=== PATIENT | male | born 1960 | race Caucasian/White ===

== ENCOUNTER 2016-05-16 22:52 | Observation (INO) | payer MEDICAID ==
[~2016-05-16] VITALS: Ht 172.7 cm; Wt 78.0 kg
[2016-05-16 22:55] VITALS: BP 151/79; PULSE 103; RESP 18; TEMP 97.9; O2SAT 95
[2016-05-16] MEDS ORDERED: LISI-515 PO (23:12)
[2016-05-16] MEDS ORDERED: ATEN50TA PO (23:12)
[2016-05-16] MEDS ORDERED: MORPHINE SULFATE 4 MG/ML INJ IV PUSH ONE (23:15)
[2016-05-16] MEDS ORDERED: SODIUM CHLORIDE 0.9% FLUSH 5 ML FLUSH IVF PRN (23:15)
[2016-05-16] MEDS ORDERED: SODIUM CHLORID 0.9% 500 ML INJ 500 ML IV ONE (23:15)
[2016-05-16] MEDS: METOPROLOL TARTRATE 5 MG/5 ML VIAL IVS SCH ×3 (23:20→23:27)
[2016-05-16 23:21] VITALS: BP 149/72; PULSE 90; RESP 18; O2SAT 96
--- NOTE | 2016-05-16 23:22 | PD ---
HPI Chief Complaint: Chest Pain Time Seen by Provider: 23:05 Travel History International Travel<30 days: No Contact w/Intl Traveler<30days: No Traveled to known affect area: No History of Present Illness HPI A 56-year-old male arrives to the ER by EMS. He complains of left-sided chest pain with radiation to the shoulder and elbow. It started about one hour prior to ER arrival. He received 1 nitroglycerin en route by EMS. He states that did not help. He reports a history of myocardial infarction however denies placement of a stent. He takes neither aspirin or Plavix. Today he drank X cans of beer and [place] the day on the beach. The chest pain started when he began walking to a [employer] for food. He states the severity is 8/10. He states he has a known left bundle-branch block. He is on vacation here from [place]. PFSH Past Medical History Hypertension: Yes Myocardial Infarction: Yes (Pt states he thinks in 2009) Social History Alcohol Use: Yes (12-15 beers per day) Tobacco Use: Yes (1ppd ) Substance Use: No Allergies-Medications (Allergen,Severity, Reaction): Coded Allergies: Codeine (Verified Adverse Reaction, Intermediate, Nausea/Vomiting, 05/16/16) Reported Meds & Prescriptions Reported Meds & Active Scripts Active Reported Atenolol 50 Mg Tab Unknown Dose PO BID Lisinopril 20 Mg Tab Unknown Dose PO DAILY Review of Systems Except as stated in HPI: all other systems reviewed are Neg Physical Exam Narrative GENERAL: 56-year-old male, falls asleep during the ER evaluation SKIN: Warm and dry. HEAD: Atraumatic. Normocephalic. EYES: Pupils equal and round. No scleral icterus. No injection or drainage. ENT: No nasal bleeding or discharge. Mucous membranes pink and moist. NECK: Trachea midline. No JVD. CARDIOVASCULAR: Regular rate and rhythm. No murmur appreciated. RESPIRATORY: No accessory muscle use. Clear to auscultation. Breath sounds equal bilaterally. GASTROINTESTINAL: Abdomen soft, non-tender, nondistended. Hepatic and splenic margins not palpable. MUSCULOSKELETAL: No obvious deformities. No clubbing. No cyanosis. No edema. NEUROLOGICAL: Awake and alert. No obvious cranial nerve deficits. Motor grossly within normal limits. Normal speech. PSYCHIATRIC: Appropriate mood and affect; insight and judgment normal. Data Data Last Documented VS Vital Signs Date Time Temp Pulse Resp B/P Pulse Ox O2 Delivery O2 Flow Rate FiO2 05/17/16 00:05 88 17 158/89 96 Nasal Cannula 2 05/16/16 22:55 97.9 Orders Electrocardiogram (05/16/16 23:06) Ckmb (Isoenzyme) Profile (05/16/16 23:06) Complete Blood Count With Diff (05/16/16 23:06) Comprehensive Metabolic Panel (05/16/16 23:06) Magnesium (Mg) (05/16/16 23:06) Prothrombin Time / Inr (Pt) (05/16/16 23:06) Act Partial Throm Time (Ptt) (05/16/16 23:06) Troponin I (05/16/16 23:06) Lipase (05/16/16 23:06) Chest, Single Ap (05/16/16 23:06) Ecg Monitoring (05/16/16 23:06) Bilateral Bp Monitoring (05/16/16 23:06) Iv Access Insert/Monitor (05/16/16 23:06) Oximetry (05/16/16 23:06) Oxygen Administration (05/16/16 23:06) Morphine Inj (Morphine Inj) (05/16/16 23:15) Sodium Chloride 0.9% Flush (Ns Flush) (05/16/16 23:15) Sodium Chlorid 0.9% 500 Ml Inj (Ns 500 M (05/16/16 23:15) Metoprolol Tartrate Inj (Lopressor Inj) (05/16/16 23:15) CKMB (05/16/16 23:14) CKMB% (05/16/16 23:14) Nitroglycerin 2% Oint (Nitroglycerin 2% (05/17/16 00:30) Labs Laboratory Tests Test 05/16/16 23:14 White Blood Count 6.7 TH/MM3 Red Blood Count 4.50 MIL/MM3 Hemoglobin 14.4 GM/DL Hematocrit 40.4 % Mean Corpuscular Volume 89.8 FL Mean Corpuscular Hemoglobin 32.1 PG Mean Corpuscular Hemoglobin 35.7 % Concent Red Cell Distribution Width 15.4 % Platelet Count 203 TH/MM3 Mean Platelet Volume 8.8 FL Neutrophils (%) (Auto) 47.7 % Lymphocytes (%) (Auto) 42.3 % Monocytes (%) (Auto) 8.0 % Eosinophils (%) (Auto) 0.8 % Basophils (%) (Auto) 1.2 % Neutrophils # (Auto) 3.2 TH/MM3 Lymphocytes # (Auto) 2.8 TH/MM3 Monocytes # (Auto) 0.5 TH/MM3 Eosinophils # (Auto) 0.1 TH/MM3 Basophils # (Auto) 0.1 TH/MM3 CBC Comment DIFF FINAL Differential Comment Prothrombin Time 10.0 SEC Prothromb Time International 0.9 RATIO Ratio Activated Partial 29.3 SEC Thromboplast Time Sodium Level 142 MEQ/L Potassium Level 3.5 MEQ/L Chloride Level 105 MEQ/L Carbon Dioxide Level 24.3 MEQ/L Anion Gap 13 MEQ/L Blood Urea Nitrogen 7 MG/DL Creatinine 0.97 MG/DL Estimat Glomerular Filtration 79 ML/MIN Rate Random Glucose 117 MG/DL Calcium Level 7.8 MG/DL Magnesium Level 2.5 MG/DL Total Bilirubin 0.6 MG/DL Aspartate Amino Transf 48 U/L (AST/SGOT) Alanine Aminotransferase 31 U/L (ALT/SGPT) Alkaline Phosphatase 62 U/L Total Creatine Kinase 786 U/L Creatine Kinase MB 6.2 NG/ML Creatine Kinase MB % 0.8 % Troponin I 0.05 NG/ML Total Protein 7.0 GM/DL Albumin 3.7 GM/DL Lipase 690 U/L [facility] Medical Decision Making Medical Screen Exam Complete: Yes Emergency Medical Condition: Yes Differential Diagnosis NSTEMI, unstable angina, coronary vasospasm, PE, PTX, aortic dissection, pericarditis, myocarditis, endocarditis, PNA, esophageal disease, aneurysm, musculoskeletal etiologies, anxiety, cocaine/sympathomimetic abuse Narrative Course CBC & BMP Diagram 05/16/16 23:14 Total creatinine kinase 796 Lipase 690 EKG reveals a left bundle branch block pattern with a rate of 92 INR 0.9 Last Impressions Chest X-Ray 05/16/16 7206 Signed Impressions: Service Date/Time: Monday, May 16, 2016 23:49 - CONCLUSION: No acute disease. Daniel Martinez MD The patient has remained sleeping throughout most of his ER stay. He has received IV fluids metoprolol and Nitropaste. He took aspirin this morning. He 'll be admitted for serial enzymes and for a mild pancreatitis. Discussed with Dr Gonzalez. Etiology of pancreatitis is unclear however there is no hyperbilirubinemia or sign of infection. Patient also drank alcohol all day today such that alcoholic pancreatitis is considered high on the differential. Diagnosis Primary Impression: Pancreatitis Qualified Code: K85.90 - Acute pancreatitis, unspecified complication status, unspecified pancreatitis type Additional Impressions: Alcohol abuse Troponin level elevated Admitting Information Admitting Physician Requests: Observation Laim Melton MD May 16, 2016 23:22
[2016-05-16 23:26] LABS: AUTOMATED NEUTROPHIL # 3.2 TH/MM3 (1.8-7.7); BASOPHIL # 0.1 TH/MM3 (0-0.2); BASOPHIL % 1.2 % (0.0-2.0); EOSINOPHIL # 0.1 TH/MM3 (0-0.4); EOSINOPHIL % 0.8 % (0.0-4.0); HEMATOCRIT 40.4 % (39.0-51.0); HEMO FLAGS DIFF FINAL; LYMPH % 42.3 % (9.0-44.0); LYMPHOCYTE # 2.8 TH/MM3 (1.0-4.8); MEAN CELL VOLUME 89.8 FL (80.0-100.0); MEAN CORPUSCULAR HEMOGLOBIN 32.1 PG (27.0-34.0); MEAN CORPUSCULAR HGB CONC 35.7 % (32.0-36.0); NEUT % 47.7 % (16.0-70.0); PLATELET COUNT 203 TH/MM3 (150-450); RED CELL DISTRIBUTION WIDTH 15.4 % (11.6-17.2); WHITE BLOOD COUNT 6.7 TH/MM3 (4.0-11.0)
[2016-05-16 23:27] VITALS: BP 120/74; PULSE 83; RESP 16; O2SAT 96
[2016-05-16 23:34] LABS: APTT (PATIENT) 29.3 SEC (24.3-30.1); INTERNATIONAL NORMALIZED RATIO 0.9 RATIO
[2016-05-16 23:41] LABS: ANION GAP 13 MEQ/L (5-15); AST (GOT) 48 U/L (15-37); BICARBONATE 24.3 MEQ/L (21.0-32.0); BLOOD UREA NITROGEN 7 MG/DL (7-18); CHLORIDE 105 MEQ/L (98-107); GLOMERULAR FILTRATION RATE 79 ML/MIN (>89); MAGNESIUM 2.5 MG/DL (1.5-2.5); POTASSIUM 3.5 MEQ/L (3.5-5.1); SODIUM (NA) 142 MEQ/L (136-145)
[2016-05-16 23:45] LABS: ALKALINE PHOSPHATASE 62 U/L (45-117); ALT (GPT) 31 U/L (12-78); CREATINE KINASE 786 U/L (39-308); TOTAL BILIRUBIN ADULT 0.6 MG/DL (0.2-1.0)
[2016-05-16 23:48] VITALS: BP 146/79; PULSE 82; RESP 17; O2SAT 96
[2016-05-16 23:57] LABS: CKMB 6.2 NG/ML (0.5-3.6)
[2016-05-17] VITALS (10 sets, daily range): BP systolic 135–180; BP diastolic 63–92; PULSE 68–95; RESP 17–18; TEMP 97.8–98.6; O2SAT 92–99
--- NOTE | 2016-05-17 00:17 | RADRPT ---
EXAM DATE/TIME: 05/16/2016 23:49 [facility] COMPARISON: No previous studies available for comparison. INDICATIONS : Chest pain for several days. MEDICAL HISTORY : Unobtainable. SURGICAL HISTORY : Unobtainable. ENCOUNTER: Initial ACUITY: 1 day PAIN SCORE: Non-responsive. LOCATION: Bilateral chest FINDINGS: A single view of the chest demonstrates the lungs to be symmetrically aerated without evidence of mas s, infiltrate or effusion. The cardiomediastinal contours are unremarkable. Osseous structures are intact. CONCLUSION: No acute disease. Daniel Martinez MD on May 17, 2016 at 0:15 Board Certified Radiologist. This report was verified electronically.
[2016-05-17] MEDS ORDERED: NITROGLYCERIN 2% OINT 1 GM PACKET TOP ONE (00:30)
[2016-05-17] MEDS ORDERED: SODIUM CHLOR 0.9% 1000 ML INJ 1,000 ML IV SCH (00:35)
[2016-05-17] MEDS ORDERED: BISACODYL 10 MG SUPP PR PRN (00:45)
[2016-05-17] MEDS ORDERED: ACETAMINOPHEN 325 MG TAB PO PRN (00:45)
[2016-05-17] MEDS ORDERED: MORPHINE SULFATE 4 MG/ML INJ IV PRN (00:45)
[2016-05-17] MEDS ORDERED: SODIUM CHLORIDE 0.9% FLUSH 5 ML FLUSH FLUSH PRN (00:45)
[2016-05-17] MEDS ORDERED: ONDANSETRON HCL 4 MG/2 ML VIAL IVP PRN (00:45)
--- NOTE | 2016-05-17 02:26 | HHI.HP ---
[facility] Primary Care Physician Non-Staff Admission Diagnosis Pancreatitis, Tn 0.05 w CP, EtOH Intox Diagnoses: (1) Chest pain Diagnosis: Principal (2) Pancreatitis Diagnosis: Principal (3) Rhabdomyolysis Diagnosis: Principal (4) Alcohol abuse Diagnosis: Principal (5) Tobacco abuse Diagnosis: Principal Travel History International Travel<30 Days: No Contact w/Intl Traveler <30 Da: No Traveled to Known Affected Are: No History of Present Illness This is a 56-year-old male with PMH of HTN, Alcohol Abuse and Tobacco Abuse who is brought to the ER by EMS secondary complaints of left-sided chest pain starting earlier tonight. S/p NTG by EMS w/ no improvement. Denies fever, chills, cough or SOB. Does admit to drinking approx 12 beers/day, reports drinking 10 beers today prior to onset of chest pain. On arrival, BP 151/79, HR 103, O2 sat 95% on RA, Afebrile. CBC unremarkable. Chemistry essentially unremarkable. CPK 786. Troponin 0.05. Lipase 690. CXR with no acute findings. Patient currently chest pain-free. Review of Systems Other ROS: 14 point review of systems otherwise negative. Past Family Social History Past Medical History PMH: HTN, Alcohol Abuse and Tobacco Abuse Past Surgical History PAST SURGICAL HISTORY: None Allergies: Coded Allergies: Codeine (Verified Adverse Reaction, Intermediate, Nausea/Vomiting, 05/16/16) Family History PAST FAMILY HISTORY: Reviewed. No h/o DM or CAD Social History PAST SOCIAL HISTORY: Drinks 12-15 beers per day. Smokes 1ppd. Negative for drugs. Physical Exam Vital Signs Vital Signs Date Time Temp Pulse Resp B/P Pulse Ox O2 Delivery O2 Flow Rate FiO2 05/17/16 00:05 88 17 158/89 96 Nasal Cannula 2 05/16/16 23:48 82 17 146/79 96 Nasal Cannula 2 05/16/16 23:27 83 16 120/74 96 Nasal Cannula 2 05/16/16 23:21 90 18 149/72 96 Nasal Cannula 2 05/16/16 23:09 96 Nasal Cannula 2 05/16/16 22:55 97.9 103 18 151/79 95 Physical Exam PE: GENERAL: Middle-aged white male in no acute distress. Acutely intoxicated. HEENT: PERRLA, EOMI. No scleral icterus or conjunctival pallor. No lid lag or facial droop. CARDIOVASCULAR: Regular rate and rhythm. No obvious murmurs to auscultation. No chest tenderness to palpation. RESPIRATORY: No obvious rhonchi or wheezing. Clear to auscultation. Breath sounds equal bilaterally. GASTROINTESTINAL: Abdomen soft, non-tender, nondistended. BS normal. MUSCULOSKELETAL: Extremities without clubbing, cyanosis, or edema. No obvious deformities. NEUROLOGICAL: Lethargic, intoxicated, rouses to name, answers few questions. No focal neurologic deficits. Moving both upper and lower extremities spontaneously. Laboratory Laboratory Tests Test 05/16/16 23:14 White Blood Count 6.7 Red Blood Count 4.50 Hemoglobin 14.4 Hematocrit 40.4 Mean Corpuscular Volume 89.8 Mean Corpuscular Hemoglobin 32.1 Mean Corpuscular Hemoglobin 35.7 Concent Red Cell Distribution Width 15.4 Platelet Count 203 Mean Platelet Volume 8.8 Neutrophils (%) (Auto) 47.7 Lymphocytes (%) (Auto) 42.3 Monocytes (%) (Auto) 8.0 Eosinophils (%) (Auto) 0.8 Basophils (%) (Auto) 1.2 Neutrophils # (Auto) 3.2 Lymphocytes # (Auto) 2.8 Monocytes # (Auto) 0.5 Eosinophils # (Auto) 0.1 Basophils # (Auto) 0.1 CBC Comment DIFF FINAL Differential Comment Prothrombin Time 10.0 Prothromb Time International 0.9 Ratio Activated Partial 29.3 Thromboplast Time Sodium Level 142 Potassium Level 3.5 Chloride Level 105 Carbon Dioxide Level 24.3 Anion Gap 13 Blood Urea Nitrogen 7 Creatinine 0.97 Estimat Glomerular Filtration 79 Rate Random Glucose 117 Calcium Level 7.8 Magnesium Level 2.5 Total Bilirubin 0.6 Aspartate Amino Transf 48 (AST/SGOT) Alanine Aminotransferase 31 (ALT/SGPT) Alkaline Phosphatase 62 Total Creatine Kinase 786 Creatine Kinase MB 6.2 Creatine Kinase MB % 0.8 Troponin I 0.05 Total Protein 7.0 Albumin 3.7 Lipase 690 Result Diagram: 05/16/16 8491 05/16/160 Assessment and Plan Problem List: (1) Chest pain ICD Code: R07.9 Status: Acute (2) Pancreatitis ICD Code: K85.90 Status: Acute (3) Rhabdomyolysis ICD Code: M62.82 Status: Acute (4) Alcohol abuse ICD Code: F10.10 Status: Acute (5) Tobacco abuse ICD Code: Z72.0 Status: Acute Assessment and Plan A/P: 1. Chest Pain: Atypical. Chest pain likely related to Alcoholic Gastritis/ Pancreatitis, however will r/o ACS. Initial trop 0.05, EKG w/ no acute ischemia. Admit for Observation, telemetry, check serial cardiac enzymes. Start ASA, Statin and B-sohail. Check Lipid Profile. NTG/Morphine prn. 2. Pancreatitis: Alcohol-Induced. Lipase 690. Protonix IV, IVF, repeat Lipase in am. Diet as tolerated. Analgesics/antiemetics as needed. 3. Rhabdomyolysis: CPK 786, IVF, repeat labs in am. 4. Alcohol Abuse: w/ Acute Alcohol Intoxication. Drinks 12-15 beers/day, Seizure Precautions, CIWA, MVT/Thiamine/Folate replacement. 5. Tobacco Abuse: Ativan prn. No NicoDerm to avoid vasoconstriction. 6. DVT Prophylaxis: SCD/Teds. 7. Social work for d/c planning as needed. 8. Case discussed w/ ER physician at length. Problem Qualifiers (1) Pancreatitis: Qualified Code: K85.90 - Acute pancreatitis, unspecified complication status, unspecified pancreatitis type Daphne Gonzalez MD May 17, 2016 02:26
[2016-05-17] MEDS ORDERED: LORazepam 2 MG TAB PO PRN (02:30)
[2016-05-17] MEDS ORDERED: LORazepam 1 MG TAB PO PRN (02:30)
[2016-05-17] MEDS ORDERED: LORazepam 2 MG/ML VIAL IV PUSH PRN ×2 (02:30)
[2016-05-17] MEDS ORDERED: HALOPERIDOL LACTATE 5 MG/ML AMP IM PRN (02:30)
[2016-05-17] MEDS ORDERED: FLUMAZENIL 0.5 MG/5 ML VIAL IV PUSH PRN (02:30)
[2016-05-17] MEDS: LORazepam 2 MG/ML VIAL IV PUSH PRN ×3 (05:39→18:13)
[2016-05-17] MEDS: THIAMINE INJ 100 MG in SODIUM CHLORIDE 0.9% INJ 100 ML IV SCH (05:39)
[2016-05-17 06:07] LABS: AUTOMATED NEUTROPHIL # 2.7 TH/MM3 (1.8-7.7); BASOPHIL # 0.1 TH/MM3 (0-0.2); BASOPHIL % 1.1 % (0.0-2.0); EOSINOPHIL # 0.1 TH/MM3 (0-0.4); EOSINOPHIL % 1.5 % (0.0-4.0); HEMATOCRIT 40.3 % (39.0-51.0); HEMO FLAGS DIFF FINAL; LYMPH % 35.9 % (9.0-44.0); LYMPHOCYTE # 1.9 TH/MM3 (1.0-4.8); MEAN CELL VOLUME 89.9 FL (80.0-100.0); MEAN CORPUSCULAR HGB CONC 35.6 % (32.0-36.0); NEUT % 51.5 % (16.0-70.0); PLATELET COUNT 199 TH/MM3 (150-450); RED BLOOD COUNT 4.48 MIL/MM3 (4.50-5.90); RED CELL DISTRIBUTION WIDTH 15.4 % (11.6-17.2); WHITE BLOOD COUNT 5.3 TH/MM3 (4.0-11.0)
[2016-05-17 06:35] LABS: ALKALINE PHOSPHATASE 53 U/L (45-117); ALT (GPT) 29 U/L (12-78); ANION GAP 8 MEQ/L (5-15); AST (GOT) 49 U/L (15-37); BLOOD UREA NITROGEN 7 MG/DL (7-18); CHLORIDE 110 MEQ/L (98-107); CREATINE KINASE 635 U/L (39-308); GLOMERULAR FILTRATION RATE 91 ML/MIN (>89); LDL CHOLESTEROL 93 MG/DL (0-99); SODIUM (NA) 143 MEQ/L (136-145); TOTAL BILIRUBIN ADULT 0.8 MG/DL (0.2-1.0)
[2016-05-17 06:36] LABS: POTASSIUM 4.2 MEQ/L (3.5-5.1)
[2016-05-17] MEDS: MULTIVITAMIN INJ 10 ML, FOLIC ACID INJ 1 MG in SODIUM CHLORID 0.9% 500 ML INJ 500 ML IV SCH (06:39)
[2016-05-17 06:51] LABS: CKMB 4.9 NG/ML (0.5-3.6)
[2016-05-17] MEDS ORDERED: ASPIRIN EC 81 MG TABEC PO SCH (09:00)
[2016-05-17] MEDS: SODIUM CHLORIDE 0.9% FLUSH 5 ML FLUSH FLUSH SCH ×2 (09:00→21:17)
[2016-05-17 09:07] LABS: BLOOD, URINE NEG (NEG); COMMENT (UR) CULT NOT INDICATED; CULTURE IF INDICATED CULT NOT INDICATED; GLUCOSE,URINE NEG (NEG); HYALINE CAST, URINE 4 /lpf (RARE); KETONE, URINE 10 mg/dL (NEG); MUCUS URINE FEW /lpf (OCC); NITRITE,URINE NEG (NEG); PH, URINE 5.5 (5.0-8.5); SQUAMOUS EPITHELIAL CELL URINE <1 /hpf (0-5); URINE COLOR YELLOW (YELLW/STRAW)
[2016-05-17] MEDS ORDERED: REGADENOSON INJ 0.4 MG/5 ML SYR ONE (09:31)
--- NOTE | 2016-05-17 11:07 | RADRPT ---
EXAM DATE/TIME: 05/17/2016 09:10 [facility] COMPARISON: No previous studies available for comparison. INDICATIONS : Left sided chest pain for 1 day. Current smoker. Angina. Myocardial infarction. DOSE: 25.4 mCi Tc99m Myoview at stress. 8.2 mCi Tc99m Myoview at rest. 0.4 mg Lexiscan STRESS SYMPTOMS: Dyspnea. EJECTION FRACTION: 47% MEDICAL HISTORY : Hypertension. Alcohol abuse. SURGICAL HISTORY : None. ENCOUNTER: Initial ACUITY: 1 day PAIN SCALE: 3/10 LOCATION: Left chest TECHNIQUE: The patient underwent pharmacologic stress with infusion of prescribed dose. Continuous ECG tracing was monitored during stress. Gated SPECT imaging was performed after stress and conventional SPECT i maging was performed at rest. The examination was performed on a SPECT/CT scanner, both attenuation and non-corrected datasets were reviewed. FINDINGS: The best perfused myocardium is the lateral and inferior wall. Moderate gut activity does obscure the inferior wall. There is very minimal redistribution in the septal wall beginning in mid-septal wall extending toward s the base. There is the depressed ejection fraction of 47% with minimal hypokinesis of the inferior wall. CONCLUSION: Minimal redistribution inferior wall suggesting stress-induced ischemia. RISK CATEGORY: Low (<1% Annual Mortality Rate) Evaristo Santos MD FACR on May 17, 2016 at 11:02 Board Certified Radiologist. This report was verified electronically.
[2016-05-17] MEDS: METOPROLOL TARTRATE 50 MG TAB PO SCH ×2 (11:11→21:16)
--- NOTE | 2016-05-17 11:43 | EKG ---
Date Performed: 05/16/2016 Time Performed: 23:04:24 PTAGE: 56 years EKG: Sinus rhythm MARKED LEFT AXIS DEVIATION LEFT BUNDLE BRANCH BLOCK ABNORMAL ECG NO PREVIOUS TRACING DOCTOR: Sukumar Gill Interpretating Date/Time 05/17/2016 11:41:35
--- NOTE | 2016-05-17 11:44 | EKG ---
Date Performed: 05/16/2016 Time Performed: 22:53:24 PTAGE: 56 years EKG: SINUS TACHYCARDIA WITH OCCASIONAL VENTRICULAR PREMATURE COMPLEXES MARKED LEFT AXIS DEVIATIO N LEFT BUNDLE BRANCH BLOCK ABNORMAL ECG NO PREVIOUS TRACING DOCTOR: Sukumar Gill Interpretating Date/Time 05/17/2016 11:42:07
[2016-05-17 13:41] LABS: CKMB 4.5 NG/ML (0.5-3.6)
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
[2016-05-17] MEDS ORDERED: amLODIPine BESYLATE 5 MG TAB PO SCH (14:00)
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
[2016-05-17] MEDS ORDERED: chlordiazePOXIDE 25 MG CAP PO PRN (16:00)
[2016-05-18] MEDS: LORazepam 2 MG/ML VIAL IV PUSH PRN (01:05)
[2016-05-18 01:34] LABS: AMPHETAMINE, URINE NEG (NEG); BARBITURATES, URINE NEG (NEG); COCAINE, URINE NEG (NEG)
[2016-05-18] MEDS: MULTIVITAMIN INJ 10 ML, FOLIC ACID INJ 1 MG in SODIUM CHLORID 0.9% 500 ML INJ 500 ML IV SCH (05:57)
[2016-05-18] MEDS: THIAMINE INJ 100 MG in SODIUM CHLORIDE 0.9% INJ 100 ML IV SCH (05:57)
[2016-05-18 05:58] VITALS: BP 139/78; PULSE 86; RESP 18; TEMP 97.9; O2SAT 97
--- NOTE | 2016-05-18 08:01 | PD.AMA ---
Against Medical Advice Note Discharge Disposition: Against Medical Advice Pt Condition on Discharge: Stable AMA Statement Patient Lucas Houser has decided to leave the hospital against medical advice. This patient has the capacity to refuse care and understands the risks of leaving, including permanent disability and/or , and has had an opportunity to ask questions about his condition. The patient has been informed that he may return for care at any time, and follow up has been arranged/ advised. RN informs me that patient is leaving AMA. Asked for the patient to stay 1 hour to wait for prescriptions and discharge however he said he didn't want to wait and left AGAINST MEDICAL ADVICE. Chhaya Figueroa PA-C May 18, 2016 08:01
[2016-05-18 08:13] LABS: BICARBONATE 22.6 MEQ/L (21.0-32.0); POTASSIUM 3.6 MEQ/L (3.5-5.1)
[2016-05-18 08:36] LABS: CKMB 2.8 NG/ML (0.5-3.6)
[2016-05-18] MEDS ORDERED: LISINOPRIL 20 MG TAB PO SCH (09:00)
[2016-05-18] MEDS ORDERED: PRAVASTATIN SOD 40 MG TAB PO SCH (09:00)
[2016-05-20] MEDS ORDERED: THIAMINE HCL 100 MG TAB PO SCH (09:00)
== END 2016-05-18 10:13 | disposition left against medical advice (07) ==
LOC: NEPC 22:52 → NEDA 05-17 00:37 → NEPHCDU 05-17 02:20
PROVIDERS: ADMIT Hospitalist; ATTEND Hospitalist
DX: R07.89 Other chest pain (principal); F10.239 Alcohol dependence with withdrawal, unspecified; K85.90 Acute pancreatitis without necrosis or infection, unspecified; I25.2 Old myocardial infarction; I44.7 Left bundle-branch block, unspecified; M62.82 Rhabdomyolysis; I10 Essential (primary) hypertension; F17.210 Nicotine dependence, cigarettes, uncomplicated; R74.8 Abnormal levels of other serum enzymes
CPT/HCPCS: 71010; 78452; 80048; 80053; 80061; 80307; 81001; 82550; 82552; 83690; 83735; 84484; 85025; 85610; 85730; 93005; 93017; 96361; 96374; 99285; A9502; G0378; J2060; J2785; J3411; J7030; J7040

== ENCOUNTER 2016-05-20 01:24 | Inpatient (IN) | payer MEDICAID ==
[2016-05-20] VITALS (21 sets, daily range): BP systolic 109–165; BP diastolic 68–93; PULSE 68–101; RESP 13–20; TEMP 97.4–98; O2SAT 94–99
[~2016-05-20] VITALS: Ht 170.2 cm; Wt 81.5 kg
[~2016-05-20 01:24] MED LIST: ATEN50TA PO; LISI-515 PO
[2016-05-20] MEDS ORDERED: SODIUM CHLORIDE 0.9% FLUSH 5 ML FLUSH IVF PRN (01:45)
[2016-05-20] MEDS ORDERED: NITROGLYCERIN 2% OINT 1 GM PACKET TOPICAL ONE (01:45)
[2016-05-20 01:58] LABS: BASOPHIL # 0.1 TH/MM3 (0-0.2); BASOPHIL % 0.6 % (0.0-2.0); EOSINOPHIL % 0.1 % (0.0-4.0); HEMATOCRIT 40.1 % (39.0-51.0); HEMO FLAGS DIFF FINAL; LYMPH % 11.7 % (9.0-44.0); MEAN CELL VOLUME 89.9 FL (80.0-100.0); MEAN CORPUSCULAR HEMOGLOBIN 31.8 PG (27.0-34.0); MEAN CORPUSCULAR HGB CONC 35.4 % (32.0-36.0); MONO % 3.1 % (0.0-8.0); NEUT % 84.5 % (16.0-70.0); PLATELET COUNT 174 TH/MM3 (150-450); RED BLOOD COUNT 4.46 MIL/MM3 (4.50-5.90); RED CELL DISTRIBUTION WIDTH 15.1 % (11.6-17.2); WHITE BLOOD COUNT 8.3 TH/MM3 (4.0-11.0)
--- NOTE | 2016-05-20 01:58 | RADRPT ---
EXAM DATE/TIME: 05/19/2016 23:48 [facility] COMPARISON: MYOCARDIAL PERF PHARM SPECT, GATED W/EF, May 17, 2016, 9:10. CHEST SINGLE AP, May 16, 2016 , 23:49. INDICATIONS : Patient has had chest pain since this evening. Patient is a smoker. MEDICAL HISTORY : Hypertension. Chronic obstructive pulmonary disease. SURGICAL HISTORY : None. ENCOUNTER: Initial ACUITY: 1 day PAIN SCORE: 9/10 LOCATION: Bilateral chest FINDINGS: A single view of the chest demonstrates the lungs to be symmetrically aerated without evidence of mas s, infiltrate or effusion. The cardiomediastinal contours are unremarkable. Osseous structures are intact. CONCLUSION: No acute disease. Daniel Martinez MD on May 20, 2016 at 1:56 Board Certified Radiologist. This report was verified electronically.
[2016-05-20 02:18] LABS: ALKALINE PHOSPHATASE 58 U/L (45-117); TOTAL BILIRUBIN ADULT 0.7 MG/DL (0.2-1.0)
[2016-05-20 02:23] LABS: ALT (GPT) 41 U/L (12-78); ANION GAP 14 MEQ/L (5-15); AST (GOT) 76 U/L (15-37); BLOOD UREA NITROGEN 11 MG/DL (7-18); CHLORIDE 98 MEQ/L (98-107); GLOMERULAR FILTRATION RATE 88 ML/MIN (>89); POTASSIUM 3.9 MEQ/L (3.5-5.1); SODIUM (NA) 133 MEQ/L (136-145)
--- NOTE | 2016-05-20 03:52 | PD ---
HPI Chief Complaint: Chest Pain Time Seen by Provider: 01:33 Travel History International Travel<30 days: No Contact w/Intl Traveler<30days: No Traveled to known affect area: No History of Present Illness HPI This is a 56-year-old male who presents to the emergency department with chest pain that started 1 hour prior to arrival, constant in the center of his chest, moderate severity, similar to chest pain he had 3 days ago when he came to the hospital. He is an alcoholic and is visiting from out of [place]. He is homeless. He came to the emergency department several days ago complaining of chest pain. He was admitted at the time and had a nuclear stress test which was abnormal. He was seen by cardiology and deemed not a candidate for stent placement due to his multiple adverse social factors. Patient reportedly per EMS had an episode of 6 seconds a ventricular fibrillation and had another run of ventricular tachycardia that they appreciated. The did not defibrillate the patient. They did not bring any copies of the patient's rhythm. He was administered an aspirin prior to arrival. [facility] Past Medical History Heart Rhythm Problems: No Cancer: No Cardiovascular Problems: Yes (CHEST PAIN) High Cholesterol: No Chest Pain: Yes Congestive Heart Failure: No Endocrine: No Genitourinary: No Hypertension: Yes Immune Disorder: No Musculoskeletal: No Neurologic: No Psychiatric: No Reproductive: No Respiratory: No Myocardial Infarction: Yes (Pt states he thinks in 2009) Past Surgical History Surgical History: No Previous Surgery Social History Alcohol Use: Yes (12-15 beers per day) Tobacco Use: Yes (1ppd ) Substance Use: No Allergies-Medications (Allergen,Severity, Reaction): Coded Allergies: Codeine (Verified Adverse Reaction, Intermediate, Nausea/Vomiting, 05/20/16) Reported Meds & Prescriptions Reported Meds & Active Scripts Active Reported Atenolol 50 Mg Tab Unknown Dose PO BID Lisinopril 20 Mg Tab Unknown Dose PO DAILY Review of Systems Except as stated in HPI: all other systems reviewed are Neg Physical Exam Narrative GENERAL: Disheveled SKIN: Warm and dry. HEAD: Atraumatic. Normocephalic. EYES: Pupils equal and round. No injection or drainage. ENT: Moist mucous membranes NECK: Trachea midline. CARDIOVASCULAR: Regular rate and rhythm. No murmur appreciated. RESPIRATORY: Clear to auscultation. Breath sounds equal bilaterally. GASTROINTESTINAL: Abdomen soft, non-tender, nondistended. MUSCULOSKELETAL: No obvious deformities. NEUROLOGICAL: Somnolent. No obvious cranial nerve deficits. Moving all extremities. Data Data Last Documented VS Vital Signs Date Time Temp Pulse Resp B/P Pulse Ox O2 Delivery O2 Flow Rate FiO2 05/20/16 03:28 96 Nasal Cannula 2 05/20/16 03:27 96 13 128/84 05/20/16 01:33 97.9 Orders Electrocardiogram (05/20/16 01:35) Complete Blood Count With Diff (05/20/16 01:35) Comprehensive Metabolic Panel (05/20/16 01:35) Magnesium (Mg) (05/20/16 01:35) Troponin I (05/20/16 01:35) Chest, Single Ap (05/20/16 01:35) Ecg Monitoring (05/20/16 01:35) Bilateral Bp Monitoring (05/20/16 01:35) Iv Access Insert/Monitor (05/20/16 01:35) Oximetry (05/20/16 01:35) Oxygen Administration (05/20/16 01:35) Sodium Chloride 0.9% Flush (Ns Flush) (05/20/16 01:45) Alcohol (Ethanol) (05/20/16 01:35) Nitroglycerin 2% Oint (Nitroglycerin 2% (05/20/16 01:45) Lipase (05/20/16 01:40) Arterial Blood Gas (Abg) (05/20/16 ) Labs Laboratory Tests Test 05/20/16 01:40 White Blood Count 8.3 TH/MM3 Red Blood Count 4.46 MIL/MM3 Hemoglobin 14.2 GM/DL Hematocrit 40.1 % Mean Corpuscular Volume 89.9 FL Mean Corpuscular Hemoglobin 31.8 PG Mean Corpuscular Hemoglobin 35.4 % Concent Red Cell Distribution Width 15.1 % Platelet Count 174 TH/MM3 Mean Platelet Volume 9.4 FL Neutrophils (%) (Auto) 84.5 % Lymphocytes (%) (Auto) 11.7 % Monocytes (%) (Auto) 3.1 % Eosinophils (%) (Auto) 0.1 % Basophils (%) (Auto) 0.6 % Neutrophils # (Auto) 7.0 TH/MM3 Lymphocytes # (Auto) 1.0 TH/MM3 Monocytes # (Auto) 0.3 TH/MM3 Eosinophils # (Auto) 0.0 TH/MM3 Basophils # (Auto) 0.1 TH/MM3 CBC Comment DIFF FINAL Differential Comment Sodium Level 133 MEQ/L Potassium Level 3.9 MEQ/L Chloride Level 98 MEQ/L Carbon Dioxide Level 21.0 MEQ/L Anion Gap 14 MEQ/L Blood Urea Nitrogen 11 MG/DL Creatinine 0.89 MG/DL Estimat Glomerular Filtration 88 ML/MIN Rate Random Glucose 125 MG/DL Calcium Level 8.1 MG/DL Magnesium Level 2.0 MG/DL Total Bilirubin 0.7 MG/DL Aspartate Amino Transf 76 U/L (AST/SGOT) Alanine Aminotransferase 41 U/L (ALT/SGPT) Alkaline Phosphatase 58 U/L Troponin I 0.02 NG/ML Total Protein 7.6 GM/DL Albumin 3.8 GM/DL Lipase 690 U/L Ethyl Alcohol Level 146 MG/DL [facility] Medical Decision Making Medical Screen Exam Complete: Yes Emergency Medical Condition: Yes Interpretation(s) EKG: Left bundle branch block seen on prior EKG No leukocytosis Left shift Electrolytes are similar to prior Lipase is not twice the upper limit of normal Troponin is normal Differential Diagnosis Acute coronary syndrome, electrolyte abnormality, EKG artifact, arrhythmia Narrative Course This is a 56-year-old male who presents to the emergency department having reportedly had an episode witnessed by [facility] of ventricular fibrillation and ventricular tachycardia. Patient is complaining of chest pain. EKG is similar to prior with a left bundle branch block. He was given nitroglycerin and he received aspirin prior to arrival. He was placed on a monitor and an IV was established. Labs were obtained which were all reassuring. I'm not sure if this was a true episode of ventricular fibrillation that if it was patient requires close monitoring and if he has further ectopy he may require AICD placement. Patient will be admitted. Diagnosis Primary Impression: Chest pain Qualified Code: R07.9 - Chest pain, unspecified type Admitting Information Admitting Physician Requests: Admit Daly Mercedes MD May 20, 2016 03:52
[2016-05-20 04:02] LABS: BLOOD GAS BASE EXCESS -3.6 mmol/L (-2-2); BLOOD GAS CARBOXYHEMOGLOBIN 3.9 % (0-4); BLOOD GAS HCO3 21 mmol/L (22-26); BLOOD GAS METHEMOGLOBIN 2.2 % (0-2); BLOOD GAS O2 HGB SATURATION 91 % (90-100); BLOOD GAS OXYGEN CONTENT 18.1 Vol % (12.0-20.0); BLOOD GAS PCO2 41 mmHg (38-42); BLOOD GAS PO2 107 mmHG (61-120); CRITICAL VALUE NO; DRAW SITE LT RADIAL; LITER FLOW 2 L/M; OXYGEN DEVICE NASAL CANNULA; TEMP CORR TO 98.6
[2016-05-20 04:03] LABS: NUMBER OF ARTERIAL PUNCTURES 1; STAT YES; ULNAR PULSE PRESENT
[2016-05-20] MEDS ORDERED: ACETAMINOPHEN 500 MG CPLT PO PRN (05:45)
[2016-05-20] MEDS ORDERED: NITROGLYCERIN 0.4 MG SL 25 TABS/BTL SL PRN (05:45)
[2016-05-20] MEDS ORDERED: SODIUM CHLORIDE 0.9% FLUSH 5 ML FLUSH IV PRN (05:45)
[2016-05-20] MEDS: HEPARIN SODIUM - SQ 10,000 UNITS/ML VIAL SQ SCH ×3 (06:42→21:18)
--- NOTE | 2016-05-20 08:09 | EKG ---
Date Performed: 05/20/2016 Time Performed: 01:35:06 PTAGE: 56 years EKG: Baseline artifact present Unclear underlying rhythm MARKED LEFT AXIS DEVIATION LEFT BUNDLE BRANCH BLOCK ABNORMAL ECG COMPARED TO PRIOR ELECTROCARDIOGRAM, I cannot accurately compare rhythm bec ause of artifact. PREVIOUS TRACING : 05/16/2016 23.04 DOCTOR: Martin Blakely Interpretating Date/Time 05/20/2016 08:08:32
[2016-05-20] MEDS ORDERED: ZANT300T PO (08:48)
[2016-05-20] MEDS ORDERED: TRAZ50TA12 PO (08:48)
[2016-05-20] MEDS ORDERED: PRAV80TA2 PO (08:48)
[2016-05-20] MEDS ORDERED: FENO1TAB76 PO (08:48)
[2016-05-20] MEDS ORDERED: ASPI81CH CHEW (08:48)
[2016-05-20] MEDS ORDERED: GABA300C5 PO (08:48)
[2016-05-20] MEDS: SODIUM CHLOR 0.9% 1000 ML INJ 1,000 ML IV SCH ×2 (10:23→20:23)
[2016-05-20] MEDS ORDERED: DIAZEPAM 5 MG TAB PO SCH (10:30)
[2016-05-20] MEDS ORDERED: METOPROLOL TARTRATE 25 MG TAB PO SCH (10:30)
[2016-05-20] MEDS ORDERED: diphenhydrAMINE HCL 50 MG CAP PO SCH (10:30)
[2016-05-20] MEDS ORDERED: LORazepam 1 MG TAB PO PRN (11:00)
[2016-05-20] MEDS ORDERED: LORazepam 2 MG/ML VIAL IV PUSH PRN ×2 (11:00)
[2016-05-20] MEDS ORDERED: LORazepam 2 MG TAB PO PRN (11:00)
[2016-05-20] MEDS ORDERED: FLUMAZENIL 0.5 MG/5 ML VIAL IV PUSH PRN (11:00)
[2016-05-20] MEDS: PANTOPRAZOLE SOD 40 MG DELAYED RELEASE TAB PO SCH (11:09)
[2016-05-20] MEDS: ASPIRIN 81 MG CHEW TAB PO SCH (11:09)
[2016-05-20] MEDS: SODIUM CHLORIDE 0.9% FLUSH 5 ML FLUSH IV SCH ×2 (11:10→21:17)
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
[2016-05-20] MEDS: chlordiazePOXIDE 25 MG CAP PO SCH ×2 (12:04→17:58)
[2016-05-20] MEDS: NITROGLYCERIN 2% OINT 1 GM PACKET TOPICAL SCH ×2 (12:04→17:58)
[2016-05-20] MEDS: FOLIC ACID 1 MG TAB PO SCH (12:10)
[2016-05-20] MEDS: GABAPENTIN 300 MG CAP PO SCH ×2 (12:10→17:58)
[2016-05-20] MEDS: THIAMINE HCL 100 MG TAB PO SCH (12:11)
[2016-05-20] MEDS ORDERED: IOHEXOL 350 MG/ML 10 ML VIAL (for RAD DIAG) IV ONE (12:37)
--- NOTE | 2016-05-20 12:49 | RADRPT ---
EXAM DATE/TIME: 05/20/2016 12:26 [facility] COMPARISON: No previous studies available for comparison. INDICATIONS : Chest pain, arrythmia; evaluate for pulmonary ebolism. IV CONTRAST: 50 cc Omnipaque 350 (iohexol) IV RADIATION DOSE: 11.68 CTDIvol (mGy) MEDICAL HISTORY : Hypertension. SURGICAL HISTORY : None. ENCOUNTER: Initial ACUITY: 1 day PAIN SCALE: 4/10 LOCATION: chest TECHNIQUE: Volumetric scanning of the chest was performed using a pulmonary embolism protocol MIP images were re constructed. Using automated exposure control and adjustment of the mA and/or kV according to patien t size, radiation dose was kept as low as reasonably achievable to obtain optimal diagnostic quality images. FINDINGS: PULMONARY ARTERIES: No filling defects are seen in the pulmonary arteries through the segmental level. LUNGS: There is no consolidation or pneumothorax . No concerning pulmonary nodule is visualized. Minimal sc attered fibrotic scarring and/or atelectasis is noted bilaterally. PLEURAE: There is no pleural thickening or pleural effusion. MEDIASTINUM: There is good visualization of the great vessels of the middle mediastinum. No evidence of mediastin al or hilar adenopathy/mass. Cardiomegaly is noted. MUSCULOSKELETAL: Within normal limits for patient age. MISCELLANEOUS: The visualized upper abdominal organs demonstrate no acute abnormality. Fatty liver is noted. CONCLUSION: 1. No evidence of pulmonary embolism. 2. Cardiomegaly. 3. Minimal scattered bilateral fibrotic scarring and/or atelectasis. 4. Fatty liver. Colt Engel MD on May 20, 2016 at 12:45 Board Certified Radiologist. This report was verified electronically.
[2016-05-20] MEDS: LORazepam 2 MG/ML VIAL IV PUSH PRN ×4 (13:08→19:59)
[2016-05-20 15:38] LABS: CKMB 3.9 NG/ML (0.5-3.6)
--- NOTE | 2016-05-20 17:17 | EC ---
Study Study Date:05/20/2016 STUDY CONCLUSIONS SUMMARY - Left ventricle: The cavity size was normal. Wall thickness was normal. Systolic function was normal. The estimated ejection fraction was in the range of 55% to 60%. Wall motion was normal; there were no regional wall motion abnormalities. - Aortic valve: Mild regurgitation. Valve area: 1.45cm^2 (Vmax). - Mitral valve: Mild regurgitation. If LV function is below 40, please consider prescribing an ACEI or ARB or document rationale for non-use. PROCEDURE DATA STUDY STATUS: Elective. Procedure: Transthoracic echocardiography. Image quality was good. Scanning was performed from the parasternal, apical, and subcostal acoustic windows. Study completion: The patient tolerated the procedure well. Transthoracic echocardiography. M-mode, complete 2D, complete spectral Doppler, and color Doppler. Height: Height: 67in. Weight: Weight: 170.6lb. Body mass index: BMI: 26.8kg/m^2. Body surface area: BSA: 1.89m^2. Patient status: Inpatient. CARDIAC ANATOMY LEFT VENTRICLE: The cavity size was normal. Wall thickness was normal. Systolic function was normal. The estimated ejection fraction was in the range of 55% to 60%. Wall motion was normal; there were no regional wall motion abnormalities. AORTIC VALVE: Trileaflet; normal thickness leaflets. Doppler: Transvalvular velocity was within the normal range. There was no stenosis. Mild regurgitation. Valve area: 1.45cm^2 (Vmax). Indexed valve area: 0.77cm^2/m^2 (Vmax). Mean gradient: 12mm Hg (S). Peak gradient: 20mm Hg (S). AORTA: Aortic root: The aortic root was normal in size. MITRAL VALVE: Structurally normal valve. Doppler: Transvalvular velocity was within the normal range. There was no evidence for stenosis. Mild regurgitation. Peak gradient: 5mm Hg (D). LEFT ATRIUM: The atrium was normal in size. RIGHT VENTRICLE: The cavity size was normal. Wall thickness was normal. PULMONIC VALVE: Doppler: Transvalvular velocity was within the normal range. There was no evidence for stenosis. No regurgitation. TRICUSPID VALVE: Structurally normal valve. Doppler: Transvalvular velocity was within the normal range. No regurgitation. PULMONARY ARTERY: The main pulmonary artery was normal-sized. Systolic pressure was within the normal range. RIGHT ATRIUM: The atrium was normal in size. PERICARDIUM: There was no pericardial effusion. SYSTEMIC VEINS: Inferior vena cava: The vessel was normal in size. Patient weight: 170.6lb _Ejection fraction:_ 65-75% _Fractional shortening:_ 32% up to 5Kg 5-11.5Kg 11.6-22.9Kg 23-45Kg 45-57Kg Aortic Root 7-13 <17 13-22 17-27 17-27 LA diam 6-13 <23 24-38 33-47 37-40 RVID 10-17 7-15 7-15 7-18 8-17 LVIDd 12-22 <32 24-38 33-47 37-40 LVPW 2-4 3-6 5-7 6-8 7-8 IVS 2-4 3-6 5-7 6-8 7-8 BASIC MEASUREMENTS ADULT NORMAL Left ventricle LV internal dimension, ED, chordal *41.2 mm 43-52 level, PLAX LV internal dimension, ES, chordal 37.2 mm 23-38 level, PLAX Fractional shortening, chordal level, *10 % >29 PLAX LV posterior wall thickness, ED 8.77 mm IVS/LVPW ratio, ED 1.05 <1.3 Volume, ED, MOD, 1-plane 112 ml Volume, ES, MOD, 1-plane 89 ml Ejection fraction, MOD, 1-plane 20 % Stroke volume, MOD, 1-plane 23 ml Volume index, ED, MOD, 1-plane 59 ml/m^2 Volume index, ES, MOD, 1-plane 47 ml/m^2 Stroke index, MOD, 1-plane 12.2 ml/m^2 Volume, ED, MOD, 2-plane 98 ml Volume, ES, MOD, 2-plane 79 ml Ejection fraction, MOD, 2-plane 19 % Stroke volume, MOD, 2-plane 19 ml Volume index, ED, MOD, 2-plane 52 ml/m^2 Volume index, ES, MOD, 2-plane 42 ml/m^2 Stroke index, MOD, 2-plane 10.1 ml/m^2 Ventricular septum Septal thickness, ED 9.25 mm Aortic valve Leaflet separation 18 mm 15-26 BASIC MEASUREMENTS ADULT NORMAL Aortic valve Leaflet separation 18 mm 15-26 Aorta Root diameter, ED 20 mm 20-37 Left atrium Anterior-posterior dimension, ES 35 mm 19-40 Anterior-posterior dimension index, ES 1.85 cm/m^2 <2.2 LA/aortic root ratio 1.75 DOPPLER MEASUREMENTS ADULT NORMAL Aortic valve Peak velocity, S 223 cm/s Mean velocity, S 164 cm/s VTI, S 36.3 cm Mean gradient, S 12 mm Hg Peak gradient, S 20 mm Hg Valve area, Vmax 1.45 cm^2 Valve area index, Vmax 0.77 cm^2/m^2 Regurgitant velocity, ED 417 cm/s Regurgitant deceleration 1390 cm/s^2 Regurgitant pressure half-time 881 ms Regurgitant gradient, ED 70 mm Hg Mitral valve Peak E-wave velocity 116 cm/s Peak A-wave velocity 121 cm/s Deceleration time 162 ms 150-230 Peak gradient, D 5 mm Hg Peak E/A ratio 1 Maximal regurgitant velocity 462 cm/s Pulmonic valve Peak velocity, S 156 cm/s LEGEND: Mean values are shown as u=mean value. Asterisk (*) olmedo values outside specified normal range. Prepared and signed by Santos Gaytan [id number]
[2016-05-20] MEDS: traZODone HCL 50 MG TAB PO SCH (21:16)
[2016-05-20] MEDS: METOPROLOL TARTRATE 25 MG TAB PO SCH (21:16)
[2016-05-21] VITALS (10 sets, daily range): BP systolic 115–123; BP diastolic 70–78; PULSE 64–82; RESP 20; TEMP 97.6–98; O2SAT 96–97
[2016-05-21] MEDS: SODIUM CHLOR 0.9% 1000 ML INJ 1,000 ML IV SCH (00:04)
[2016-05-21] MEDS: LORazepam 2 MG/ML VIAL IV PUSH PRN ×4 (02:13→11:54)
[2016-05-21] MEDS: HEPARIN SODIUM - SQ 10,000 UNITS/ML VIAL SQ SCH (05:39)
[2016-05-21] MEDS: NITROGLYCERIN 2% OINT 1 GM PACKET TOPICAL SCH ×2 (05:40)
[2016-05-21 06:56] LABS: AUTOMATED NEUTROPHIL # 3.5 TH/MM3 (1.8-7.7); BASOPHIL # 0.1 TH/MM3 (0-0.2); EOSINOPHIL # 0.1 TH/MM3 (0-0.4); EOSINOPHIL % 1.7 % (0.0-4.0); HEMATOCRIT 39.4 % (39.0-51.0); HEMO FLAGS DIFF FINAL; LYMPH % 27.1 % (9.0-44.0); LYMPHOCYTE # 1.5 TH/MM3 (1.0-4.8); MEAN CELL VOLUME 91.9 FL (80.0-100.0); MEAN CORPUSCULAR HEMOGLOBIN 31.6 PG (27.0-34.0); MEAN CORPUSCULAR HGB CONC 34.4 % (32.0-36.0); MONO % 8.5 % (0.0-8.0); NEUT % 61.7 % (16.0-70.0); PLATELET COUNT 140 TH/MM3 (150-450); RED BLOOD COUNT 4.29 MIL/MM3 (4.50-5.90); RED CELL DISTRIBUTION WIDTH 14.8 % (11.6-17.2); WHITE BLOOD COUNT 5.7 TH/MM3 (4.0-11.0)
[2016-05-21] MEDS ORDERED: HEPARIN-NS/PF INJ 500 ML ONE ×2 (07:05→09:12)
[2016-05-21] MEDS ORDERED: diphenhydrAMINE HCL 50 MG/ML VIAL ONE (07:13)
[2016-05-21] MEDS ORDERED: NITROGLYCERIN INJ 5 ML ONE (07:20)
[2016-05-21] MEDS ORDERED: HEPARIN SODIUM - IV 10,000 UNITS/10 ML VIAL ONE ×3 (07:20→09:13)
[2016-05-21] MEDS ORDERED: VERAPAMIL HCL 5 MG/2 ML VIAL ONE ×2 (07:20→09:13)
[2016-05-21 07:25] LABS: POTASSIUM 3.6 MEQ/L (3.5-5.1)
[2016-05-21] MEDS ORDERED: MIDAZOLAM HCL 2 MG/2 ML VIAL ONE ×2 (07:39→09:12)
[2016-05-21] MEDS ORDERED: ADENOSINE STRESS TEST INJ 90 MG/30 ML VIAL ONE (07:59)
[2016-05-21] MEDS ORDERED: MISC INFORMATION XX ONE (08:45)
[2016-05-21] MEDS ORDERED: SODIUM CHLORIDE 0.9% FLUSH 5 ML FLUSH IVF PRN (08:45)
[2016-05-21] MEDS ORDERED: PRAVASTATIN SOD 80 MG TAB PO SCH (09:00)
[2016-05-21] MEDS ORDERED: LISINOPRIL 20 MG TAB PO SCH (09:00)
[2016-05-21] MEDS ORDERED: ASPIRIN EC 81 MG TABEC PO SCH (09:00)
[2016-05-21] MEDS ORDERED: SODIUM CHLORIDE 0.9% FLUSH 5 ML FLUSH IVF SCH (09:00)
[2016-05-21] MEDS: SODIUM CHLORIDE 0.9% FLUSH 5 ML FLUSH IV SCH (09:00)
[2016-05-21] MEDS ORDERED: FENOFIBRATE 48 MG TAB PO SCH (09:00)
[2016-05-21] MEDS ORDERED: IOHEXOL 350 MG/ML 100 ML BTL (for Cath Lab) OTHER ONE (09:46)
[2016-05-21] MEDS ORDERED: IOHEXOL 350 MG/ML 50 ML BTL (for Cath Lab) OTHER ONE (09:46)
[2016-05-21] MEDS: ASPIRIN 81 MG CHEW TAB PO SCH (09:47)
[2016-05-21] MEDS: FOLIC ACID 1 MG TAB PO SCH (09:47)
[2016-05-21] MEDS: PANTOPRAZOLE SOD 40 MG DELAYED RELEASE TAB PO SCH (09:47)
[2016-05-21] MEDS: chlordiazePOXIDE 25 MG CAP PO SCH ×2 (09:47→11:53)
[2016-05-21] MEDS: traZODone HCL 50 MG TAB PO SCH (09:47)
[2016-05-21] MEDS: METOPROLOL TARTRATE 25 MG TAB PO SCH (09:47)
[2016-05-21] MEDS: GABAPENTIN 300 MG CAP PO SCH ×2 (09:47→11:54)
[2016-05-21] MEDS: THIAMINE HCL 100 MG TAB PO SCH (09:47)
[2016-05-21] MEDS ORDERED: INFLUENZA VIRUS VACCINE (QUADRIVALENT) 0.5 ML SYR IM ONE (10:00)
--- NOTE | 2016-05-21 10:37 | MA ---
cc: JOSE SO M.D. DATE: 05/21/2016 PROCEDURE PERFORMED 1. Left heart catheterization. 2. Left ventriculography. 3. Coronary angiography. 4. Fractional flow reserve of the left anterior descending coronary artery. BRIEF HISTORY Lucas Houser is a 56-year-old man who purchased a one-way bus ticket from [facility] to hang out with friends and ended up being homeless here. He is an alcoholic and was admitted for acute alcohol intoxication and chest pain. On his last admission he also had chest pain. He has marked chest wall tenderness. His nuclear stress test last admission showed some minimal inferior ischemia. Because he is now re-admitted for chest pain, cardiac catheterization was advised to get a definitive diagnosis on him. There are major concerns about his ability to comply with a dual-antiplatelet regimen for stenting. DESCRIPTION OF PROCEDURE The patient was brought to the cardiac hemodialysis lab technician in a fasting state. The right wrist was prepped and draped in sterile fashion. He received 1 mg of Versed for additional sedation. Using a Jelco needle the right radial artery was accessed and a Terumo Slender sheath placed. Coronary angiography was then completed using a [place] catheter. I then decided to perform FFR measurement of the LAD. An EBU guide would not engage easily so I used a 6-Kinyarwanda left 3.5 Mable. A pressure wire was then used to measure fractional flow reserve of the LAD utilizing IV adenosine. iFR 0.91. FFR with IV adenosine early on dropped as low as 0.82. We actually measured it at 3 minutes, with IV adenosine it was 0.85. Despite the angiographic appearance it was not functionally severe enough to require stenting. In addition I had major fears of stenting this man whose ability to comply with dual-antiplatelet regimen is extremely questionable. For this reason no intervention was performed. An angled pigtail catheter was then used to measure left ventricular pressure followed by a pullback. Catheters were then removed. A Terumo band was placed. No complications. Estimated blood loss 10 cc. FINDINGS HEMODYNAMICS Left ventricular pressure was 118/9 with an end-diastolic pressure elevated at 21. Aortic pressure 112/63 with a mean of 83. There was no gradient during pullback from the left ventricle to the aorta. LEFT VENTRICULOGRAPHY Left ventriculography shows global hypokinesis with an estimated ejection fraction of 40% and 1+ mitral regurgitation. CORONARY ANGIOGRAPHY The patient has large coronary arteries. The left main appears normal. The left anterior descending artery has a smooth focal 70% stenosis starting immediately after a very large diagonal branch. The remainder of the LAD appears normal. The diagonal branch itself appears normal. The circumflex artery appears normal. The right coronary artery is dominant with a 20% eccentric distal stenosis and is also very large caliber. FUNCTIONAL MEASUREMENTS The iFR measurement of the LAD was 0.92. The FFR measurement was between 0.82 and 0.85. RECOMMENDATIONS Medical therapy. Advise the patient being on baby aspirin, 75 mg of Plavix, statin, beta sohail and nitrate therapy. He needs to quit smoking and quit drinking. Hopefully he can get back to [place] where he has some family support mechanisms in place. MD RAZIA Eldridge/LOVE /8:35 AM /10:26 AM
[2016-05-21] MEDS ORDERED: VITAMIN B CMPLX/VITC/FOLIC AC CAP PO ONE (10:45)
[2016-05-21] MEDS ORDERED: LISI-515 PO (11:16)
[2016-05-21] MEDS ORDERED: CHLO25CA2 PO (11:16)
[2016-05-21] MEDS ORDERED: PLAV75TA29 PO (11:16)
[2016-05-21] MEDS ORDERED: NEPHRO PO (11:16)
[2016-05-21] MEDS ORDERED: METO25TA3 PO (11:16)
[2016-05-21] MEDS ORDERED: ISOS60TA PO (11:16)
[2016-05-22] MEDS ORDERED: ISOSORBIDE MONONITRATE 60 MG TAB PO SCH (07:00)
[2016-05-22] MEDS ORDERED: VITAMIN B CMPLX/VITC/FOLIC AC CAP PO SCH (09:00)
--- NOTE | 2016-06-02 06:36 | HHI.DS ---
Discharge Summary Admission Date May 20, 2016 at 05:06 Discharge Date: Jul 19, 2016 Admitting Diagnosis chest pain, arrythmia (1) Chest pain ICD Code: R07.9 (2) Fatty liver ICD Code: K76.0 Procedures cardiac catheterization. Please see report. Brief History - From Admission This is a 56-year-old male patient with past medical history which includes hypertension, prostate cancer, EtOH abuse and tobacco abuse. Patient was recently admitted to [facility] on 05/17/2016 for chest pain found to have an abnormal nuclear stress test was felt to not be a candidate for cardiac catheterization at that time and discharged. Patient reports he was walking quite a lot yesterday then returned to emergency department 05/19/2016 with recurrence of chest pain. Patient describes the chest pain as severe left sided squeezing sensation with radiation to the left side of his neck and left arm. Patient had associated vomiting multiple times and shortness of breath. Patient reports the chest pain was constant and continue for a few hours. Patient reports since being evaluated emergency department and given nitroglycerin paste the chest pain seems to be improving. Now the chest pain is intermittent and not as severe. Patient reports also reports a chronic nonproductive cough which he attributes to smoking. Patient has noticed over the last few days he has had a, "smothering feeling," as though he cannot get enough oxygen, patient also reports it hurts to deep breathe causing a stabbing/catching type pain in his chest. Patient is noted to be visually tremulous throughout interview process. Patient reports he drinks between 12 and 15 beers a day and smokes one pack cigarettes per day. Imaging Last Impressions Chest X-Ray 05/20/16 0135 Signed Impressions: Service Date/Time: Thursday, May 19, 2016 23:48 - CONCLUSION: No acute disease. Daniel Martinez MD CT Angiography 05/20/16 0000 Signed Impressions: Service Date/Time: May 12:26 - CONCLUSION: 1. No evidence of pulmonary embolism. 2. Cardiomegaly. 3. Minimal scattered bilateral fibrotic scarring and/or atelectasis. 4. Fatty liver. Colt Engel MD PE at Discharge GENERAL: pt sitting up in bed. appears comfortable. AAOx3 SKIN: Warm and dry. HEAD: Normocephalic. EYES: No scleral icterus. No injection or drainage. NECK: Supple, trachea midline. No JVD or lymphadenopathy. CARDIOVASCULAR: Regular rate and rhythm without murmurs, gallops, or rubs. RESPIRATORY: Breath sounds equal bilaterally. No accessory muscle use. GASTROINTESTINAL: Abdomen soft, non-tender, nondistended. MUSCULOSKELETAL: No cyanosis, or edema. BACK: Nontender without obvious deformity. No CVA tenderness. Pt update on day of discharge pt says he feels well. would like to go home. Hospital Course Chest pain resolved with control of heart rate and blood pressure.positive for fatty liver, likely secondary to alcohol. Patient underwent cardiac catheterization which showed 70% stenosis of mid LAD which did not require stenting. Patient will need medical management, and was discharged home with Plavix, isosorbide, metoprolol. He'll need to stop smoking and stop drinking. Alcohol withdrawal was managed with Librium taper. He'll need to follow primary care. For problem-based summary from most recent progress note, please see below. This is a 56-year-old male patient with past medical history which includes hypertension, prostate cancer, EtOH abuse and tobacco abuse. Patient was recently admitted to [facility] on 05/17/2016 for chest pain found to have an abnormal nuclear stress test was felt to not be a candidate for cardiac catheterization at that time and discharged. Patient reports he was walking quite a lot yesterday then returned to emergency department 05/19/2016 with recurrence of chest pain. Chest pain Plan cardiac catheterization in a.m. Nothing by mouth after midnight Cardiology consult seen by Dr. Dangelo Serial troponin nitroglycerin paste Continue aspirin daily Metoprolol 25 mg twice a day Pravastatin and TriCor Lipid profile reviewed from 05/17 admission LDL in the 90s. Continuous telemetry monitoring -05/21. Cardiac catheterization with 70% stenosis. No stenting. Medical management. Continue statin. Discharge home on Plavix, isosorbide, metoprolol. Stop drinking alcohol. Pleuritic-type chest pain worse with deep breathing after recent bus ride and sedentary lifestyle -Negative for PE on CT angiography Hypertension -Continue metoprolol 25 mg twice a day and lisinopril 20mg daily EtOH abuse CIWA protocol Librium 25 mg 3 times a day 3 days reduced to Librium 10 mg 3 times a day 3 days Thiamine and folic acid supplementation Monitor closely for withdrawal Patient counseled and encouraged to abstain -Discharge home on Librium taper. Follow-up with primary care. //Tobacco abuse //Incidental finding of fatty liver. Secondary to alcohol. - Patient counseled encouraged to abstain Hold off on nicotine patch in light of possible CAD Depression continue patient's trazodone DVT prophylaxis- Heparin BID Pt Condition on Discharge: Good Discharge Disposition: Discharge Home Discharge Time: <= 30 minutes Discharge Instructions DIET: Follow Instructions for: Heart Healthy Diet Activities you can perform: Regular-No Restrictions Follow up Referrals: Cardiology - 2 Weeks with Dameon Dangelo MD PCP Follow-up - 1 Week New Medications: Clopidogrel (Plavix) 75 Mg Tab 75 MG PO DAILY Blood Clot Prevention #30 Ref 0 TAB Chlordiazepoxide (Chlordiazepoxide) 25 Mg Cap 25 MG PO TID Take THREE Times daily for 3 Days, then TWICE daily for 3 days, then ONCE a day for 3 Days. alcohol withdrawal #18 CAP Isosorbide Mononitrate ER (Isosorbide Mononitrate ER) 60 Mg Tab 60 MG PO DAILY@07 heart Days 30 TAB Metoprolol Tartrate (Metoprolol Tartrate) 25 Mg Tab 25 MG PO Q12HR heart Days 30 TAB Vitamin B Cmplx/Vit C/Folic AC (Nephro-Lamberto Rx) 1 Tab 1 CAP PO DAILY heart Days 30 TAB Changed Medications: Lisinopril (Lisinopril) 20 Mg Tab 1 TAB PO DAILY haert #30 Ref 0 TAB (Changed from: Unknown Dose ) Continued Medications: Aspirin (Aspirin) 81 Mg Chew 81 MG CHEW DAILY Ref 0 TAB Fenofibrate (Tricor) 48 Mg Tab 48 MG PO DAILY Tke with food. #30 Ref 0 TAB Gabapentin (Gabapentin) 300 Mg Cap 300 MG PO TID #90 Ref 0 CAP Pravastatin (Pravastatin) 80 Mg Tab 80 MG PO DAILY Cholesterol Management #30 Ref 0 TAB Ranitidine (Zantac) 300 Mg Tab 300 MG PO BID Ref 0 TAB Trazodone (Trazodone) 50 Mg Tab 50 MG PO BID Control Depression #30 Ref 0 TAB Discontinued Medications: Atenolol (Atenolol) 50 Mg Tab Unknown Dose PO BID Blood Pressure Management #14 Ref 0 TAB Elie Desir MD Jun 02, 2016 06:36
== END 2016-05-21 13:34 | disposition home or self-care (01) | DRG 287 ==
LOC: NEPC 01:24 → NEDA 05:06 → HCIS 10:00
PROVIDERS: ADMIT Internal Medicine; ATTEND Internal Medicine
PROC: B2111ZZ Fluoroscopy of Multiple Coronary Arteries using Low Osmolar Contrast (ICD-10-PCS; 2016-05-21)
PROC: B2151ZZ Fluoroscopy of Left Heart using Low Osmolar Contrast (ICD-10-PCS; 2016-05-21)
PROC: 4A033BC Measurement of Arterial Pressure, Coronary, Percutaneous Approach (ICD-10-PCS; 2016-05-21)
PROC: 4A023N7 Measurement of Cardiac Sampling and Pressure, Left Heart, Percutaneous Approach (ICD-10-PCS; principal; 2016-05-21 07:15)
DX: R07.9 Chest pain, unspecified (principal); I10 Essential (primary) hypertension; I25.10 Atherosclerotic heart disease of native coronary artery without angina pectoris; Z59.0 Homelessness; F17.210 Nicotine dependence, cigarettes, uncomplicated; I44.7 Left bundle-branch block, unspecified; I49.9 Cardiac arrhythmia, unspecified; Z85.46 Personal history of malignant neoplasm of prostate; Z83.3 Family history of diabetes mellitus; R07.1 Chest pain on breathing; R07.81 Pleurodynia; F32.9 Major depressive disorder, single episode, unspecified; F10.129 Alcohol abuse with intoxication, unspecified; Z91.19 Patient's noncompliance with other medical treatment and regimen; I34.0 Nonrheumatic mitral (valve) insufficiency; Z23 Encounter for immunization
CPT/HCPCS: 36600; 71010; 71275; 80048; 80053; 80320; 82550; 82552; 82805; 83690; 83735; 84484; 85002; 85025; 90686; 93005; 93306; 93458; C1769; C1887; C1893; J0153; J1200; J1644; J2060; J2250; J3010; J7030; Q2038; Q9967